=== PATIENT | male | born 1960 | race Caucasian/White ===

== ENCOUNTER 2021-11-14 11:26 | Outpatient (CLI) | payer BC | END 2021-11-14 11:27 | disposition home or self-care (01) | LOC: CSHLAB 11:26 | PROVIDERS: ATTEND Surgery | DX: Z01.818 Encounter for other preprocedural examination (principal); Z20.822 Contact with and (suspected) exposure to COVID-19; K42.9 Umbilical hernia without obstruction or gangrene | CPT/HCPCS: 93005; 93010; U0003; U0005 ==

== ENCOUNTER 2021-11-19 06:20 | Day surgery (SDC) | payer BC ==
[2021-11-14 13:09] VITALS: BMI 24.4
[2021-11-19] MEDS ORDERED: Lidocaine 1% MPF 2 ML VIAL ONE (07:54)
[2021-11-19] MEDS ORDERED: ceFAZolin 2 GM/Dextrose 50 ML IVPB ONE (08:39)
[2021-11-19] MEDS ORDERED: Bupivacaine 0.25% HCL 30 ML VIAL ONE (08:40)
[2021-11-19] MEDS ORDERED: EPINEPHrine 1 MG/ML AMP ONE (08:41)
[2021-11-19] MEDS ORDERED: Fentanyl 100 MCG/2 ML VIAL ONE ×2 (08:47→09:49)
[2021-11-19] MEDS ORDERED: Dexamethasone 4 mg/ml Vial ONE (08:47)
[2021-11-19] MEDS ORDERED: PROPOFOL 20 ML ONE ×2 (08:47→09:01)
[2021-11-19] MEDS ORDERED: Ondansetron PF 4 MG/2 ML Vial ONE (08:47)
[2021-11-19] MEDS ORDERED: Lidocaine 2% PF 5 ML VIAL ONE (08:50)
== END 2021-11-19 11:09 | disposition home or self-care (01) ==
LOC: CSHSDC 06:20
PROVIDERS: ATTEND Surgery
PROC: 0WQF0ZZ Repair Abdominal Wall, Open Approach (ICD-10-PCS; principal; 2021-11-19)
DX: K42.9 Umbilical hernia without obstruction or gangrene (principal); I10 Essential (primary) hypertension; Z79.899 Other long term (current) drug therapy
CPT/HCPCS: J0171; J0690; J1100; J2001; J2405; J2704; J3010; S0020

== ENCOUNTER 2022-07-31 10:27 | Day surgery (SDC) | payer BC ==
[2022-07-31] MEDS ORDERED: Albumin 25% 100 ML ONE (10:58)
[2022-07-31] MEDS ORDERED: Lidocaine 1% PF 5 ML VIAL ONE (10:58)
[2022-07-31] MEDS ORDERED: Sodium Bicarbonate 2.5 MEQ/5 ML VIAL ONE (11:08)
[2022-07-31 11:41] LABS: Hemoglobin 13.3 g/dL (13.5-17.5); Mean Corpuscular HGB CONC 34.6 g/dL (32.0-36.0); Mean Corpuscular Hemoglobin 31.7 pg (27.0-33.0); Mean Corpuscular Volume 91.6 fl (81.2-95.1); Mean Platelet Volume 10.6 fl (7.4-10.4); Platelet Count 141 10x3/uL (150-450); RBC Distribution Width 13.8 % (11.5-14.5); Red Blood Cell (RBC) Count 4.19 10x6/uL (4.32-5.72); White Blood Cell (WBC) Count 10.2 10x3/uL (3.5-10.5)
[2022-07-31 11:43] LABS: INR-International Normal Ratio 1.3; Prothrombin Time 13.5 sec (9.5-12.1)
[2022-07-31 12:47] VITALS: BP 170/106; TEMP 98.5
[2022-07-31] MEDS ORDERED: FLU VACC QS2022-23(6MOS UP)/PF 60 MCG/0.5 ML SYRINGE IM ONE (13:00)
== END 2022-07-31 12:25 | disposition home or self-care (01) ==
LOC: CSHULT 10:27
PROVIDERS: ATTEND Physician Assistant Medical
PROC: 0W9G3ZZ Drainage of Peritoneal Cavity, Percutaneous Approach (ICD-10-PCS; principal; 2022-07-31)
DX: K70.31 Alcoholic cirrhosis of liver with ascites (principal)
CPT/HCPCS: 49083; 85027; 85610; P9047

== ENCOUNTER 2022-08-08 10:11 | Day surgery (SDC) | payer BC ==
[2022-08-08 10:49] LABS: #Basophils 0.1 10x3/uL (0.0-0.2); #Eosinphils 0.2 10x3/uL (0.0-0.5); #Monocytes 1.2 10x3/uL (0.0-1.1); #Neutrophils 5.2 10x3/uL (1.5-8.4); %Basophils 0.7 % (0.0-2.0); %Eosinophils 2.1 % (0.0-6.0); %Lymphocytes 23.9 % (18.0-47.0); %Monocytes 13.2 % (0.0-10.0); %Neutrophils 59.5 % (40.0-75.0); Hemoglobin 12.7 g/dL (13.5-17.5); Mean Corpuscular HGB CONC 34.2 g/dL (32.0-36.0); Mean Corpuscular Hemoglobin 32.1 pg (27.0-33.0); Mean Corpuscular Volume 93.7 fl (81.2-95.1); Mean Platelet Volume 10.4 fl (7.4-10.4); Platelet Count 160 10x3/uL (150-450); RBC Distribution Width 13.9 % (11.5-14.5); Red Blood Cell (RBC) Count 3.96 10x6/uL (4.32-5.72); White Blood Cell (WBC) Count 8.7 10x3/uL (3.5-10.5)
[2022-08-08 10:51] VITALS: BP 140/85; TEMP 98
[2022-08-08] MEDS ORDERED: Lidocaine 1% PF 5 ML VIAL ONE (10:54)
[2022-08-08] MEDS ORDERED: Sodium Bicarbonate 2.5 MEQ/5 ML VIAL ONE (10:54)
[2022-08-08 10:56] LABS: Chloride 95 mmol/L (98-107); Potassium 3.2 mmol/L (3.5-5.1); Sodium 136 mmol/L (136-145)
[2022-08-08 10:59] LABS: INR-International Normal Ratio 1.2; Prothrombin Time 12.4 sec (9.5-12.1)
[2022-08-08 11:09] LABS: BUN (Urea Nitrogen) 27 mg/dL (8.4-25.7); Calc. Creatinine Clearance 85 mL/min (70-130); Calcium 9.1 mg/dL (7.8-10.44); Carbon Dioxide 30 mmol/L (23-31); Estimated GFR 76; Glucose 87 mg/dL (80-115)
[2022-08-08 11:12] LABS: Anion Gap 14 mmol/L (10-20)
== END 2022-08-08 12:05 | disposition home or self-care (01) ==
LOC: CSHULT 10:11
PROVIDERS: ATTEND Physician Assistant Medical
PROC: 0W9G3ZZ Drainage of Peritoneal Cavity, Percutaneous Approach (ICD-10-PCS; principal; 2022-08-08)
DX: K70.31 Alcoholic cirrhosis of liver with ascites (principal); N17.9 Acute kidney failure, unspecified; Z86.010 Personal history of colon polyps
CPT/HCPCS: 49083; 80048; 85025; 85610

== ENCOUNTER 2022-08-21 08:47 | Day surgery (SDC) | payer BC ==
[2022-08-19 13:48] VITALS: BMI 25.3
[~2022-08-21 08:47] MED LIST: FLU VACC QS2022-23(6MOS UP)/PF 60 MCG/0.5 ML SYRINGE IM ONE
[2022-08-21] MEDS ORDERED: Lidocaine 1% PF 5 ML VIAL ONE (09:35)
[2022-08-21] MEDS ORDERED: Albumin 25% 100 ML ONE (09:35)
[2022-08-21] MEDS ORDERED: Sodium Bicarbonate 2.5 MEQ/5 ML VIAL ONE (09:36)
[2022-08-21 10:13] VITALS: BP 132/80; TEMP 97.9
== END 2022-08-21 12:00 | disposition home or self-care (01) ==
LOC: CSHULT 08:47
PROVIDERS: ATTEND Physician Assistant Medical
PROC: 0W9G3ZZ Drainage of Peritoneal Cavity, Percutaneous Approach (ICD-10-PCS; principal; 2022-08-21)
DX: K70.31 Alcoholic cirrhosis of liver with ascites (principal)
CPT/HCPCS: 49083; P9047

== ENCOUNTER 2022-09-04 09:17 | Day surgery (SDC) | payer BC ==
[2022-09-04 09:44] VITALS: BP 129/82; TEMP 98
== END 2022-09-04 11:38 | disposition home or self-care (01) ==
LOC: CSHULT 09:17
PROVIDERS: ATTEND Physician Assistant Medical
PROC: 0W9G30Z Drainage of Peritoneal Cavity with Drainage Device, Percutaneous Approach (ICD-10-PCS; principal; 2022-09-04)
DX: K70.31 Alcoholic cirrhosis of liver with ascites (principal)
CPT/HCPCS: 49083

== ENCOUNTER → 2022-09-11 | Day surgery (SDC) | payer BC ==
[~2022-09-11] MED LIST changes: -FLU VACC QS2022-23(6MOS UP)/PF 60 MCG/0.5 ML SYRINGE IM ONE; +Lidocaine 1% MPF 2 ML VIAL ONE
[2022-09-11 10:35] LABS: #Eosinphils 0.2 10x3/uL (0.0-0.5); #Monocytes 0.8 10x3/uL (0.0-1.1); #Neutrophils 3.8 10x3/uL (1.5-8.4); %Basophils 0.5 % (0.0-2.0); %Eosinophils 2.6 % (0.0-6.0); %Lymphocytes 18.8 % (18.0-47.0); %Monocytes 12.8 % (0.0-10.0); Hemoglobin 13.8 g/dL (13.5-17.5); INR-International Normal Ratio 1.2; Mean Corpuscular HGB CONC 35.5 g/dL (32.0-36.0); Mean Corpuscular Volume 93.1 fl (81.2-95.1); Mean Platelet Volume 10.1 fl (7.4-10.4); Platelet Count 135 10x3/uL (150-450); Prothrombin Time 12.4 sec (9.5-12.1); RBC Distribution Width 14.1 % (11.5-14.5); Red Blood Cell (RBC) Count 4.18 10x6/uL (4.32-5.72); White Blood Cell (WBC) Count 5.9 10x3/uL (3.5-10.5)
[2022-09-11 10:36] LABS: ALT (SGPT) 250 U/L (8-55); AST (SGOT) 290 U/L (5-34); Alkaline Phosphatase 127 U/L (40-110); Anion Gap 12 mmol/L (10-20); BUN (Urea Nitrogen) 23 mg/dL (8.4-25.7); Bilirubin, Total 2.1 mg/dL (0.2-1.2); Calc. Creatinine Clearance 0 mL/min (70-130); Calcium 8.4 mg/dL (7.8-10.44); Carbon Dioxide 30 mmol/L (23-31); Chloride 93 mmol/L (98-107); Estimated GFR 67; Globulin 1.9 g/dL (2.4-3.5); Glucose 93 mg/dL (80-115); Potassium 4.2 mmol/L (3.5-5.1); Protein, Total 4.9 g/dL (5.8-8.1); Sodium 131 mmol/L (136-145)
== END ==
LOC: CSHULT 09:34
PROVIDERS: ATTEND Physician Assistant Medical
PROC: 0W9G30Z Drainage of Peritoneal Cavity with Drainage Device, Percutaneous Approach (ICD-10-PCS; principal; 2022-09-11)
DX: K70.31 Alcoholic cirrhosis of liver with ascites (principal)
CPT/HCPCS: 49083; 80053; 85025; 85610

== ENCOUNTER → 2022-09-19 | Day surgery (SDC) | payer BC ==
[~2022-09-19] MED LIST changes: +Albumin 25% 100 ML ONE; -Lidocaine 1% MPF 2 ML VIAL ONE; +Lidocaine 1% PF 5 ML VIAL ONE; +Sodium Bicarbonate 2.5 MEQ/5 ML VIAL ONE
== END ==
LOC: CSHULT 10:14
PROVIDERS: ATTEND Physician Assistant Medical
PROC: 0W9G30Z Drainage of Peritoneal Cavity with Drainage Device, Percutaneous Approach (ICD-10-PCS; principal; 2022-09-19)
DX: K70.31 Alcoholic cirrhosis of liver with ascites (principal)
CPT/HCPCS: 49083; P9047

== ENCOUNTER 2022-09-26 12:46 | Day surgery (SDC) | payer BC ==
[2022-09-26] MEDS ORDERED: Lidocaine 1% PF 5 ML VIAL ONE (13:22)
[2022-09-26] MEDS ORDERED: Sodium Bicarbonate 2.5 MEQ/5 ML VIAL ONE (13:23)
[2022-09-26 14:56] VITALS: BP 135/83; TEMP 98.7; BMI 25.3
[2022-09-26] MEDS ORDERED: Albumin 25% 100 ML ONE (15:12)
== END 2022-09-26 15:55 | disposition home or self-care (01) ==
LOC: CSHSDC/OP 12:46
PROVIDERS: ATTEND Physician Assistant Medical
PROC: 0W9G30Z Drainage of Peritoneal Cavity with Drainage Device, Percutaneous Approach (ICD-10-PCS; principal; 2022-09-26)
DX: K70.31 Alcoholic cirrhosis of liver with ascites (principal)
CPT/HCPCS: 49083; P9047

== ENCOUNTER 2022-10-06 10:44 | Day surgery (SDC) | payer BC ==
[2022-10-06] MEDS ORDERED: Sodium Bicarbonate 2.5 MEQ/5 ML VIAL ONE (11:23)
[2022-10-06] MEDS ORDERED: Lidocaine 1% PF 5 ML VIAL ONE (11:23)
[2022-10-06] MEDS ORDERED: Albumin 25% 100 ML ONE (12:03)
[2022-10-07 10:57] VITALS: BP 146/86; TEMP 98.9
== END 2022-10-06 12:40 | disposition home or self-care (01) ==
LOC: CSHULT 10:44
PROVIDERS: ATTEND Physician Assistant Medical
PROC: 0W9G30Z Drainage of Peritoneal Cavity with Drainage Device, Percutaneous Approach (ICD-10-PCS; principal; 2022-10-06)
DX: K70.31 Alcoholic cirrhosis of liver with ascites (principal)
CPT/HCPCS: 49083; P9047

== ENCOUNTER → 2022-10-20 | Day surgery (SDC) | payer BC ==
[2022-10-20 10:59] LABS: INR-International Normal Ratio 1.2; PTT 30.2 sec (22.0-33.0)
[2022-10-20 11:03] LABS: Hemoglobin 12.7 g/dL (13.5-17.5); Mean Corpuscular HGB CONC 35.5 g/dL (32.0-36.0); Mean Corpuscular Hemoglobin 33.7 pg (27.0-33.0); Mean Platelet Volume 10.3 fl (7.4-10.4); Platelet Count 99 10x3/uL (150-450); RBC Distribution Width 14.4 % (11.5-14.5); Red Blood Cell (RBC) Count 3.77 10x6/uL (4.32-5.72); White Blood Cell (WBC) Count 7.2 10x3/uL (3.5-10.5)
[2022-10-20 11:08] LABS: MDiff Complete? YES
[2022-10-20 11:47] LABS: Lymphocytes 22 % (21-51); Monocytes 10 % (0-10); Neutrophil 66 % (42-75); Reactive Lymphocytes 1 % (0-10)
[2022-10-20 11:48] LABS: Platelet Morphology Comment Appears Decreased
[2022-10-20 11:49] LABS: RBC Morph Comment Within Normal Limits
== END ==
LOC: CSHULT 10:07
PROVIDERS: ATTEND Physician Assistant Medical
PROC: 0W9G30Z Drainage of Peritoneal Cavity with Drainage Device, Percutaneous Approach (ICD-10-PCS; principal; 2022-10-20)
DX: K70.31 Alcoholic cirrhosis of liver with ascites (principal)
CPT/HCPCS: 49083; 85025; 85610; 85730

== ENCOUNTER 2023-01-12 10:18 | Day surgery (SDC) | payer BC ==
[2023-01-12] MEDS ORDERED: Sodium Bicarbonate 2.5 MEQ/5 ML VIAL ONE (10:33)
[2023-01-12] MEDS ORDERED: Lidocaine 1% PF 5 ML VIAL ONE (10:33)
[2023-01-12] MEDS ORDERED: Albumin 25% 100 ML ONE (10:47)
== END 2023-01-12 12:50 | disposition home or self-care (01) ==
LOC: CSHULT 10:18
PROVIDERS: ATTEND Physician Assistant Medical
DX: K70.31 Alcoholic cirrhosis of liver with ascites (principal)
CPT/HCPCS: 49083; P9047

== ENCOUNTER 2023-01-19 09:23 | Day surgery (SDC) | payer BC ==
[2023-01-19] MEDS ORDERED: Albumin 25% 0 ML ONE (09:54)
== END 2023-01-19 11:40 | disposition home or self-care (01) ==
LOC: CSHULT 09:23
PROVIDERS: ATTEND Physician Assistant Medical
DX: K70.31 Alcoholic cirrhosis of liver with ascites (principal)
CPT/HCPCS: 49083; P9047

== ENCOUNTER 2023-01-28 09:29 | Day surgery (SDC) | payer BC ==
[2023-01-28 09:51] VITALS: BP 141/86; TEMP 99
== END 2023-01-28 10:10 | disposition home or self-care (01) ==
LOC: CSHULT 09:29
PROVIDERS: ATTEND Physician Assistant Medical
DX: K70.31 Alcoholic cirrhosis of liver with ascites (principal); Z53.9 Procedure and treatment not carried out, unspecified reason
CPT/HCPCS: 76705

== ENCOUNTER 2023-02-02 09:32 | Day surgery (SDC) | payer BC ==
[2023-02-02 09:52] VITALS: BMI 25.0
[2023-02-02 10:39] LABS: INR-International Normal Ratio 1.1; Prothrombin Time 12.3 sec (9.5-12.1)
== END 2023-02-02 11:45 | disposition home or self-care (01) ==
LOC: EDBD → CSHULT 09:32
PROVIDERS: ATTEND Physician Assistant Medical
PROC: 0W9G3ZZ Drainage of Peritoneal Cavity, Percutaneous Approach (ICD-10-PCS; principal; 2023-02-02)
DX: K70.31 Alcoholic cirrhosis of liver with ascites (principal)
CPT/HCPCS: 49083; 85610

== ENCOUNTER 2023-02-16 11:36 | Day surgery (SDC) | payer BC ==
[2023-02-16 12:42] VITALS: BP 132/81; TEMP 99
== END 2023-02-16 12:50 | disposition home or self-care (01) ==
LOC: CSHULT 11:36
PROVIDERS: ATTEND Physician Assistant Medical
DX: K70.31 Alcoholic cirrhosis of liver with ascites (principal)
CPT/HCPCS: 49083; 76705

== ENCOUNTER 2023-02-25 10:40 | Day surgery (SDC) | payer BC ==
[2023-02-25 11:07] VITALS: BP 161/87; TEMP 98.4
== END 2023-02-25 12:08 | disposition home or self-care (01) ==
LOC: EDBD → CSHULT 10:40
PROVIDERS: ATTEND Physician Assistant Medical
PROC: 0W9G30Z Drainage of Peritoneal Cavity with Drainage Device, Percutaneous Approach (ICD-10-PCS; principal; 2023-02-25)
DX: K70.31 Alcoholic cirrhosis of liver with ascites (principal)
CPT/HCPCS: 49083

== ENCOUNTER → 2023-03-30 | Day surgery (SDC) | payer BC ==
[2023-03-30 12:05] LABS: #Eosinphils 0.1 10x3/uL (0.0-0.5); #Monocytes 0.5 10x3/uL (0.0-1.1); #Neutrophils 1.9 10x3/uL (1.5-8.4); %Basophils 0.6 % (0.0-2.0); %Eosinophils 1.9 % (0.0-6.0); %Lymphocytes 21.7 % (18.0-47.0); %Monocytes 15.2 % (0.0-10.0); Hematocrit 31.6 % (38.8-50.0); Hemoglobin 11.7 g/dL (13.5-17.5); Mean Corpuscular Hemoglobin 34.8 pg (27.0-33.0); Mean Platelet Volume 11.1 fl (7.4-10.4); Platelet Count 62 10x3/uL (150-450); RBC Distribution Width 13.2 % (11.5-14.5); Red Blood Cell (RBC) Count 3.36 10x6/uL (4.32-5.72); White Blood Cell (WBC) Count 3.2 10x3/uL (3.5-10.5)
[2023-03-30 12:27] LABS: INR-International Normal Ratio 1.3; PTT 32.3 sec (22.0-33.0)
[2023-03-30 12:29] VITALS: BP 141/86; TEMP 99.1
== END ==
LOC: EDBD → CSHULT 10:54
PROVIDERS: ATTEND Physician Assistant Medical
PROC: 0W9G3ZZ Drainage of Peritoneal Cavity, Percutaneous Approach (ICD-10-PCS; principal; 2023-03-30)
DX: K70.31 Alcoholic cirrhosis of liver with ascites (principal)
CPT/HCPCS: 49083; 85025; 85610; 85730

== ENCOUNTER 2023-04-27 09:57 | Day surgery (SDC) | payer BC ==
[2023-04-27 10:27] VITALS: BP 118/73; TEMP 98.8
[2023-04-27] MEDS ORDERED: Lidocaine 1% PF 5 ML VIAL ONE (10:39)
== END 2023-04-27 11:34 | disposition home or self-care (01) ==
LOC: EDBD → CSHULT 09:57
PROVIDERS: ATTEND Physician Assistant Medical
DX: K70.31 Alcoholic cirrhosis of liver with ascites (principal); Z53.8 Procedure and treatment not carried out for other reasons
CPT/HCPCS: 76705